=== PATIENT | female | born 1955 | race Caucasian/White ===

== ENCOUNTER → 2019-08-06 | Outpatient (CLI) | payer OTHER ==
--- NOTE | 2019-08-06 17:03 | XRAY Report ---
PROCEDURE: Sacrum/Coccyx INDICATIONS: COCCYGEAL PAIN TECHNIQUE: 3 views of the sacrum and coccyx acquired. COMPARISON: None FINDINGS: Bones: No fractures or dislocations. No suspicious bony lesions. Degenerative changes are present within the lower lumbar spine. Severe foraminal narrowing is noted L5-S1. Presume spinal stimulator i s noted. Soft tissues: Visualized bowel gas pattern is normal. No suspicious soft tissue densities. IMPRESSION: Degenerative changes as above. No visualized acute fracture. Reviewed by: Rafaela Polanco MD on 08/06/2019 5:01 PM PDT Approved by: Rafaela Polanco MD on 08/06/2019 5:01 PM PDT Station ID: [id number]
== END ==
LOC: DI.S 17:00
PROVIDERS: ATTEND Physician Assistant Medical
DX: M47.816 Spondylosis without myelopathy or radiculopathy, lumbar region (principal); M48.07 Spinal stenosis, lumbosacral region
CPT/HCPCS: 72220

== ENCOUNTER 2019-10-09 13:40 | Outpatient (CLI) | payer SELFPAY | END 2019-10-09 13:41 | disposition home or self-care (01) | LOC: COV 13:40 | PROVIDERS: ATTEND Family Medicine | DX: R05 Cough (principal); R53.83 Other fatigue; J34.89 Other specified disorders of nose and nasal sinuses; Z20.828 Contact with and (suspected) exposure to other viral communicable diseases ==

== ENCOUNTER 2023-04-12 08:48 | Inpatient (IN) | payer MEDICARE ==
--- NOTE | 2023-04-12 09:18 | ED Physician Documentation ---
History of Present Illness - Stated complaint Stated Complaint: RT LEG NUMB/TINGLING - Chief complaint Chief Complaint: Neuro - Additonal information Additional information: Patient 67-year-old female presenting to the emergency department with chief complaint of Right foot numbness and weakness as well as left-sided rib pain. 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 Reports 1 week history of left-sided rib pain that occurred after falling while burying a grave for the family dog. No head trauma, loss of consciousness, use of blood thinning medications. Has been taking her chronic pain medication at home. Yesterday, more than 24 hours ago experienced numbness to the right foot, right side greater than left side as well as weakness and difficulties with ambulation. Denies any other focal or lateralizing deficits. Denies any history of trauma to the foot. 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 HEENT: Tonsil/Adenoidectomy - Present Medications Home Medications: Ambulatory Orders Medication Instructions Recorded Confirmed Gabapentin [Gabapentin ER] 600 mg PO DAILY 04/12/23 04/12/23 Losartan Potassium 100 mg PO DAILY 04/12/23 04/12/23 - Allergies Allergies/Adverse Reactions: Allergies Allergy/AdvReac Type Severity Reaction Status Date / Time No Known Drug Allergies Allergy Verified 04/12/23 09:05 - Social History Does the pt smoke?: No Smoking Status: Never smoker Does the pt drink ETOH?: No Does the pt have substance abuse?: No - Immunizations Immunizations are current?: Yes - POLST Patient has POLST: No PD ED PE NORMAL - General General: Alert and oriented X 3, No acute distress, Well developed/nourished - HEENT HEENT: Atraumatic, PERRL, EOMI, Ears normal, Moist mucous membranes, Pharynx benign, Dentition benign - Neck Neck: Supple, no meningeal sign, No bony TTP, No JVD, No bruit - Cardiac Cardiac: RRR - Respiratory Respiratory: No respiratory distress - Abdomen Abdomen: Normal bowel sounds, Non tender - Female Female : Deferred - Rectal Rectal: Deferred - Neuro Neuro: Alert and oriented X 3, 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 Relevant findings are: Sinus rhythm with rate 66 bpm. Normal axis. Normal GA, QRS, QTc intervals. No ST segment elevations or T wave inversions. - Labs Labs: Laboratory Tests 04/12/23 04/12/23 09:34 09:34 WBC 11.6 H RBC 4.58 Hgb 14.3 Hct 44.2 MCV 96.5 MCH 31.2 H MCHC 32.4 RDW 13.6 Plt Count 189 MPV 10.9 H Neut # (Auto) 8.8 H Lymph # (Auto) 1.8 [place] # (Auto) 0.9 Eos # (Auto) 0.1 Baso # (Auto) 0.1 Absolute Nucleated RBC 0.00 Nucleated RBC % 0.0 Sodium 141 Potassium 3.6 Chloride 105 Carbon Dioxide 31 Anion Gap 5.0 L BUN 10 Creatinine 0.5 L Estimated GFR (MDRD) 124 Glucose 88 Calcium 9.6 Total Bilirubin 0.5 AST 15 ALT 14 Alkaline Phosphatase 73 Total Protein 5.9 L Albumin 3.7 Globulin 2.2 Albumin/Globulin Ratio 1.7 Lipase 18 PD Medical Decision Making - ED course Complexity details: reviewed results, d/w patient ED course: Patient 67-year-old female presenting to the emergency department with numbness weakness of the right foot. This has been ongoing for greater than 24 hours at time of arrival. She is not a candidate for urgent or emergent thrombolytic therapy. Her presentation is significant for an NIHSS score of 2 for some numbness as well as weakness with dorsiflexion of the associated foot. Initial differential diagnosis included but not limited to CVA, peripheral neuropathy, musculoskeletal injury. No pain associated with her symptoms and no reported injury. Basic labs within normal limits. Patient notably hypertensive on arrival however this normalized without pharmacologic intervention. Given her presentation I did obtain a MRI which showed an acute infarct in the anterior ventricular kirkpatrick matter. She was given aspirin and Plavix. Her EKG was obtained which was nonacute. Her care was discussed with the hospitalist service who graciously agreed to hospitalize for further evaluation and treatment. Departure - Departure Disposition: 68 [facility] DC/Xfer Clinical Impression: Cerebrovascular accident (CVA) Qualifiers: CVA mechanism: unspecified Qualified Code(s): I63.9 - Cerebral infarction, unspecified Forms: PCP List
[2023-04-12 09:45] LABS: BASOPHILS # (AUTO) 0.1 10^3/uL (0.0-0.1); BASOPHILS % (AUTO) 0.4 %; EOSINOPHILS # (AUTO) 0.1 10^3/uL (0.0-0.7); EOSINOPHILS % (AUTO) 0.7 %; HCT - HEMATOCRIT 44.2 % (37.0-47.0); HGB - HEMOGLOBIN 14.3 g/dL (12.0-16.0); LYMPHOCYTES # (AUTO) 1.8 10^3/uL (1.5-3.5); LYMPHOCYTES % (AUTO) 15.2 %; MEAN CORPUSCULAR HEMOGLOBIN 31.2 pg (27.0-31.0); MEAN CORPUSCULAR HGB CONC 32.4 g/dL (32.0-36.0); MEAN CORPUSCULAR VOLUME 96.5 fL (81.0-99.0); MEAN PLATELET VOLUME 10.9 fL (7.9-10.8); MONOCYTES # (AUTO) 0.9 10^3/uL (0.0-1.0); MONOCYTES % (AUTO) 7.4 %; NEUTROPHILS # (AUTO) 8.8 10^3/uL (1.5-6.6); NEUTROPHILS % (AUTO) 75.9 %; PLT - PLATELET COUNT 189 10^3/uL (130-450); RED BLOOD COUNT 4.58 10^6/uL (4.20-5.40); RED CELL DISTRIBUTION WIDTH 13.6 % (12.0-15.0); WHITE BLOOD COUNT 11.6 x10^3/uL (4.8-10.8)
[2023-04-12 09:57] LABS: ALBUMIN 3.7 g/dL (3.2-5.5); ALBUMIN/GLOBULIN RATIO 1.7 (1.0-2.2); BILIRUBIN,TOTAL 0.5 mg/dL (0.2-1.0); CALCIUM 9.6 mg/dL (8.5-10.3); CREATININE 0.5 mg/dL (0.6-1.3); POTASSIUM 3.6 mmol/L (3.5-4.5); TOTAL PROTEIN 5.9 g/dL (6.4-8.9)
--- NOTE | 2023-04-12 11:15 | XRAY Report ---
PROCEDURE: Ribs w/PA Chest 3+V LT INDICATIONS: Rib pain/trauma TECHNIQUE: 2 views of the ribs were acquired, along with a single view chest. COMPARISON: None. FINDINGS: Bones and chest wall: No fractures or dislocations. No suspicious bony lesions. Overlying soft tis sues appear unremarkable. Lungs and pleura: No pleural effusions or pneumothorax. Lungs appear clear. Mediastinum: Mediastinal contours appear normal. Heart size is normal. IMPRESSION: No displaced rib fracture or pneumothorax. Reviewed by: Andrews Bowman MD on 04/12/2023 11:14 AM PST Approved by: Andrews Bowman MD on 04/12/2023 11:14 AM PST Station ID: [id number]
[2023-04-12] MEDS ORDERED: GADOTERATE MEGLUMINE 5 MMOL/10 ML VIAL ONE (11:30)
--- NOTE | 2023-04-12 13:40 | MRI Report ---
PROCEDURE: Brain W/WO INDICATIONS: rt foot/leg weaknes CONTRAST: 7.8ml Clariscan TECHNIQUE: Noncontrast axial T1 spin echo, axial T2 fast spin echo, sagittal and axial FLAIR, coronal T2 fast sp in echo, axial gradient echo, axial diffusion and ADC through the brain. After the administration of contrast, axial and coronal T1 spin echo with fat saturation through the brain. COMPARISON: None. FINDINGS: Image quality: Excellent. CSF spaces: Basal cisterns are patent. No extra-axial fluid collections. Ventricles are normal in size and shape. Brain: Small area of restricted diffusion within the left periventricular white matter measuring janki roximately 1.3 x 0.7 cm, consistent with acute infarct. No midline shift. No intracranial bleeds or masses. No abnormal intracranial enhancement. There is cerebral volume loss for age. There is hans ventricular white matter chronic small vessel ischemic change. The brainstem appears normal. No chr onic ischemic insults. Vertebrobasilar dolichoectasia. Otherwise, normal intravascular flow voids are present. Scattered foci of susceptibility artifact, likely sequela of prior chronic hypertensive keith rohemorrhages. Skull and face: Calvarial marrow is normal in signal. Bilateral lens replacements. The orbits are o therwise normal in appearance. Sinuses: Mild maxillary sinus mucosal thickening. Trace bilateral mastoid effusions. IMPRESSION: 1.Small acute infarct within the left periventricular white matter. 2.Age-related global volume loss and chronic microvascular ischemic changes. Reviewed by: Stephon Celis MD on 04/12/2023 1:39 PM PST Approved by: Stephon Celis MD on 04/12/2023 1:39 PM PST Station ID: [id number]
[2023-04-12] MEDS: ASPIRIN 325 MG TABLET PO STA (14:14)
[2023-04-12] MEDS: CLOPIDOGREL 300 MG TABLET PO STA (14:14)
[2023-04-12] MEDS: CALCIUM CARBONATE CHEW 500 MG TABLET PO STA (15:10)
[2023-04-12] MEDS ORDERED: SODIUM CHLORIDE FLUSH 0.9% 10 ML SYRINGE IVP PRN (15:44)
[2023-04-12] MEDS ORDERED: ONDANSETRON ODT 4 MG TABLET TL PRN (15:44)
[2023-04-12] MEDS: GADOTERATE MEGLUMINE 5 MMOL/10 ML VIAL IVP ONE (16:20)
[2023-04-12] MEDS: SODIUM CHLORIDE FLUSH 0.9% 10 ML SYRINGE IVP SCH (17:04)
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
[2023-04-12] MEDS: LABETALOL 20 MG/4 ML SYRINGE IVP PRN (18:06)
[2023-04-12] MEDS: ATORVASTATIN 40 MG TABLET PO SCH (20:47)
[2023-04-12] MEDS: GABAPENTIN 300 MG CAPSULE PO SCH (20:47)
[2023-04-13] MEDS: ACETAMINOPHEN 325 MG TABLET PO PRN (05:00)
[2023-04-13 06:02] LABS: BASOPHILS % (AUTO) 0.4 %; EOSINOPHILS # (AUTO) 0.2 10^3/uL (0.0-0.7); EOSINOPHILS % (AUTO) 1.6 %; HCT - HEMATOCRIT 41.7 % (37.0-47.0); HGB - HEMOGLOBIN 13.8 g/dL (12.0-16.0); LYMPHOCYTES % (AUTO) 20.8 %; MEAN CORPUSCULAR HEMOGLOBIN 31.6 pg (27.0-31.0); MEAN CORPUSCULAR HGB CONC 33.1 g/dL (32.0-36.0); MEAN CORPUSCULAR VOLUME 95.4 fL (81.0-99.0); MEAN PLATELET VOLUME 10.8 fL (7.9-10.8); MONOCYTES # (AUTO) 0.6 10^3/uL (0.0-1.0); MONOCYTES % (AUTO) 6.8 %; NEUTROPHILS # (AUTO) 6.6 10^3/uL (1.5-6.6); NEUTROPHILS % (AUTO) 70.2 %; PLT - PLATELET COUNT 176 10^3/uL (130-450); RED BLOOD COUNT 4.37 10^6/uL (4.20-5.40); RED CELL DISTRIBUTION WIDTH 13.4 % (12.0-15.0); WHITE BLOOD COUNT 9.4 x10^3/uL (4.8-10.8)
[2023-04-13 06:18] LABS: ALBUMIN 3.4 g/dL (3.2-5.5); ALBUMIN/GLOBULIN RATIO 1.6 (1.0-2.2); ALKALINE PHOSPHATASE 68 IU/L (42-121); ALT ALANINE AMINOTRANSFERASE 12 IU/L (10-60); AST ASPARTATE AMINOTRANSFERASE 13 IU/L (10-42); BILIRUBIN,TOTAL 0.6 mg/dL (0.2-1.0); BUN - BLOOD UREA NITROGEN 10 mg/dL (6-20); CALCIUM 9.2 mg/dL (8.5-10.3); CARBON DIOXIDE - CO2 29 mmol/L (21-32); CHLORIDE 107 mmol/L (101-111); CHOL/HDL RATIO 2.4 (<4.4); CHOLESTEROL 214 mg/dL; CREATININE 0.5 mg/dL (0.6-1.3); GFR - MDRD 124 (>89); GLUCOSE 92 mg/dL (74-104); HDL CHOLESTEROL 88 mg/dL; LDL CHOLESTEROL,CALCULATED 103 mg/dL; LDL/HDL RATIO 1.2 (<4.4); POTASSIUM 3.6 mmol/L (3.5-4.5); SODIUM 141 mmol/L (135-145); TOTAL PROTEIN 5.5 g/dL (6.4-8.9); TRIGLYCERIDES 117 mg/dL (48-352); VLDL CHOLESTEROL 23 mg/dL
[2023-04-13] MEDS: ENOXAPARIN 40 MG/0.4 ML SYRINGE SUBQ SCH (08:10)
[2023-04-13] MEDS: CLOPIDOGREL 75 MG TABLET PO SCH (08:10)
[2023-04-13] MEDS: ASPIRIN EC 81 MG TABLET PO SCH (08:10)
--- NOTE | 2023-04-13 08:30 | PROVIDER PROGRESS NOTE ---
Assessment/Plan - Problem List (1) Cerebrovascular accident (CVA) Qualifiers: CVA mechanism: unspecified Qualified Code(s): I63.9 - Cerebral infarction, unspecified Assessment/Plan: Stable No new FND LDL 103 -PT/OT -will resume Bp meds pm -continue with ASA and plavix -continue with lipitor, to be followed by PCP with goal LDL <70 (2) HTN (hypertension) Assessment/Plan: Permissive hypertension now will resume Bp meds in pm - Current Meds Current Meds: Current Medications Generic Name Dose Route Start Last Admin Trade Name Freq PRN Reason Stop Dose Admin Acetaminophen 650 mg 04/12/23 15:44 04/13/23 05:00 Acetaminophen 325 Mg Tablet PO 650 mg Q4HR PRN Administration Pain 1 to 4, or Fever Aspirin 81 mg 04/13/23 09:00 04/13/23 08:10 Aspirin Ec 81 Mg Tablet PO 81 mg DAILY LASHA Administration Atorvastatin Calcium 40 mg 04/12/23 21:00 04/12/23 20:47 Atorvastatin 40 Mg Tablet PO 40 mg QPM LASHA Administration Clopidogrel Bisulfate 75 mg 04/13/23 09:00 04/13/23 08:10 Clopidogrel 75 Mg Tablet PO 75 mg DAILY LASHA Administration Enoxaparin Sodium 40 mg 04/13/23 09:00 04/13/23 08:10 Enoxaparin 40 Mg/0.4 Ml Syringe SUBQ 40 mg DAILY LASHA Administration Gabapentin 600 mg 04/12/23 21:00 04/12/23 20:47 Gabapentin 300 Mg Capsule PO 600 mg QPM LASHA Administration Labetalol HCl 20 mg 04/12/23 17:23 04/12/23 18:06 Labetalol 20 Mg/4 Ml Syringe IVP 04/13/23 17:22 20 mg ONCE PRN Administration If SBP>200 Sodium Chloride 10 ml 04/12/23 17:00 04/13/23 08:11 Sodium Chloride Flush 0.9% 10 Ml Syringe IVP 10 ml 0100,0900,1700 LASHA Administration - Lab Result Fish Bone Diagrams: 04/13/23 05:53 04/13/23 05:53 - Additional Planning Condition/Complexity: Stable My Orders: My Active Orders 04/12/23 15:44 Telemetry (24 Hour) [RC] Q4HR Acetaminophen [Tylenol] 650 mg PO Q4HR PRN Ondansetron Odt [Zofran Odt] 4 mg TL Q6HR PRN Sodium Chloride Flush 0.9% [Normal Saline Flush 0.9%] 10 ml IVP PRN PRN 04/12/23 15:45 Activity Orders [RC] Q2HR IO [RC] IOSHIFT Incentive Spirometry - RT [RC] TID Initiate Bowel Care Protocol [RC] .protocol Initiate Line Care Protocol [RC] QSHIFT Initiate Personal Care Protoco [RC] .protocol Oxygen Therapy [RC] .PRN Vital Signs [RC] Q4HR Code Status [OTHERS] Routine Condition of Patient [OTHERS] Routine DVT Prophylaxis [OTHERS] Routine 04/12/23 15:47 Evaluate and Treat OT [OT] Routine Evaluate and Treat PT [PT] Routine 04/12/23 15:49 Echo Complete w/Bubble Study [ECHO] Stat 04/12/23 Dinner Regular Diet [DIET] 04/12/23 17:00 Sodium Chloride Flush 0.9% [Normal Saline Flush 0.9%] 10 ml IVP 0100,0900,1700 04/12/23 17:23 Labetalol Syringe [Trandate Syringe] 20 mg IVP ONCE PRN 04/12/23 21:00 Atorvastatin [Lipitor] 40 mg PO QPM Gabapentin [Neurontin] 600 mg PO QPM 04/13/23 05:53 HEMOGLOBIN A1c% [CHEM] DAILYLAB 04/13/23 09:00 Aspirin EC [Ecotrin] 81 mg PO DAILY Clopidogrel [Plavix] 75 mg PO DAILY Enoxaparin [Lovenox] 40 mg SUBQ DAILY 04/14/23 05:00 CBC [CBC - COMP BLD CT W/AUTO DIFF] [HEME] DAILYLAB 04/15/23 05:00 CBC [CBC - COMP BLD CT W/AUTO DIFF] [HEME] DAILYLAB 04/16/23 05:00 CBC [CBC - COMP BLD CT W/AUTO DIFF] [HEME] DAILYLAB 04/17/23 05:00 CBC [CBC - COMP BLD CT W/AUTO DIFF] [HEME] DAILYLAB Plan Discussed with:: Patient Time Spent: 15-30 minutes Additional Planning Notes: If continues stable, plan to discharge patient home tomorrow Objective Vital Signs: Vital Signs - 24 hr 04/12/23 04/12/23 04/12/23 09:00 11:19 14:00 Temperature 36.4 C L Heart Rate 83 70 73 Heart Rate [ Brachial] Respiratory 20 18 20 Rate Blood Pressure 204/142 H 182/125 H 182/96 H Blood Pressure [Left Brachial artery] O2 Saturation 99 98 99 04/12/23 04/12/23 04/12/23 16:00 16:43 18:06 Temperature 36.1 C L 36.7 C Heart Rate 74 Heart Rate [ 67 74 Brachial] Respiratory 18 18 Rate Blood Pressure 175/114 H Blood Pressure 191/135 H 214/125 H [Left Brachial artery] O2 Saturation 97 97 04/12/23 04/12/23 04/12/23 18:11 18:16 18:21 Temperature Heart Rate Heart Rate [ 75 60 60 Brachial] Respiratory Rate Blood Pressure Blood Pressure 185/117 H 153/85 H 147/88 H [Left Brachial artery] O2 Saturation 04/12/23 04/12/23 04/12/23 18:36 18:51 19:06 Temperature Heart Rate Heart Rate [ 64 65 62 Brachial] Respiratory Rate Blood Pressure Blood Pressure 162/100 H 153/99 H 142/91 H [Left Brachial artery] O2 Saturation 04/12/23 04/12/23 04/13/23 20:03 23:59 04:57 Temperature 36.8 C 36.8 C 37.1 C Heart Rate Heart Rate [ 63 64 71 Brachial] Respiratory 20 20 20 Rate Blood Pressure Blood Pressure 166/93 H 165/99 H 184/113 H [Left Brachial artery] O2 Saturation 99 95 95 04/13/23 07:37 Temperature 37.1 C Heart Rate Heart Rate [ 73 Brachial] Respiratory 16 Rate Blood Pressure Blood Pressure 189/120 H [Left Brachial artery] O2 Saturation 94 Oxygen O2 Source Room air I&O (Last 24 Hrs): Intake and Output Totals x24h 04/11/23 04/12/23 04/13/23 23:59 23:59 23:59 Intake Total 270 Balance 270 - Results Results: Laboratory Results WBC 9.4 x10^3/uL (4.8-10.8) 04/13/23 05:53 RBC 4.37 10^6/uL (4.20-5.40) 04/13/23 05:53 Hgb 13.8 g/dL (12.0-16.0) 04/13/23 05:53 Hct 41.7 % (37.0-47.0) 04/13/23 05:53 MCV 95.4 fL (81.0-99.0) 04/13/23 05:53 MCH 31.6 pg (27.0-31.0) H 04/13/23 05:53 MCHC 33.1 g/dL (32.0-36.0) 04/13/23 05:53 RDW 13.4 % (12.0-15.0) 04/13/23 05:53 Plt Count 176 10^3/uL (130-450) 04/13/23 05:53 MPV 10.8 fL (7.9-10.8) 04/13/23 05:53 Neut # (Auto) 6.6 10^3/uL (1.5-6.6) 04/13/23 05:53 Lymph # (Auto) 2.0 10^3/uL (1.5-3.5) 04/13/23 05:53 [place] # (Auto) 0.6 10^3/uL (0.0-1.0) 04/13/23 05:53 Eos # (Auto) 0.2 10^3/uL (0.0-0.7) 04/13/23 05:53 Baso # (Auto) 0.0 10^3/uL (0.0-0.1) 04/13/23 05:53 Absolute Nucleated RBC 0.00 x10^3/uL 04/13/23 05:53 Nucleated RBC % 0.0 /100WBC 04/13/23 05:53 Sodium 141 mmol/L (135-145) 04/13/23 05:53 Potassium 3.6 mmol/L (3.5-4.5) 04/13/23 05:53 Chloride 107 mmol/L (101-111) 04/13/23 05:53 Carbon Dioxide 29 mmol/L (21-32) 04/13/23 05:53 Anion Gap 5.0 (6-13) L 04/13/23 05:53 BUN 10 mg/dL (6-20) 04/13/23 05:53 Creatinine 0.5 mg/dL (0.6-1.3) L 04/13/23 05:53 Estimated GFR (MDRD) 124 (>89) 04/13/23 05:53 Glucose 92 mg/dL (74-104) 04/13/23 05:53 Calcium 9.2 mg/dL (8.5-10.3) 04/13/23 05:53 Total Bilirubin 0.6 mg/dL (0.2-1.0) 04/13/23 05:53 AST 13 IU/L (10-42) 04/13/23 05:53 ALT 12 IU/L (10-60) 04/13/23 05:53 Alkaline Phosphatase 68 IU/L (42-121) 04/13/23 05:53 Total Protein 5.5 g/dL (6.4-8.9) L 04/13/23 05:53 Albumin 3.4 g/dL (3.2-5.5) 04/13/23 05:53 Globulin 2.1 g/dL (2.1-4.2) 04/13/23 05:53 Albumin/Globulin Ratio 1.6 (1.0-2.2) 04/13/23 05:53 Triglycerides 117 mg/dL (48-352) 04/13/23 05:53 Cholesterol 214 mg/dL (-200) H 04/13/23 05:53 LDL Cholesterol, Calc 103 mg/dL (-129) 04/13/23 05:53 VLDL Cholesterol 23 mg/dL 04/13/23 05:53 HDL Cholesterol 88 mg/dL (60-) 04/13/23 05:53 LDL/HDL Ratio 1.2 (<4.4) 04/13/23 05:53 Cholesterol/HDL Ratio 2.4 (<4.4) 04/13/23 05:53 Lipase 18 U/L (11-82) 04/12/23 09:34 - Procedures Procedures: Procedures COLONOSCOPY (09/19/13) Sepsis Event Note (H) - Evaluation Current Stage of Sepsis: Ruled out ABX Reporting Has patient been on IV antibiotics over the past 48 hours?: No
[2023-04-13 09:26] LABS: ESTIMATED AVERAGE GLUCOSE 114 mg/dL (70-100); HEMOGLOBIN A1c% 5.6 % (4.27-6.07)
--- NOTE | 2023-04-13 09:39 | PHARMACY PROGRESS NOTE ---
- Best Possible Medication History Admit Date and Time: 04/12/23 1545 Processed by: Nursing Medications reviewed in ED?: Yes Medication History completed: Yes Patient Interview: Completed Secondary Source(s): Insurance records As the person ultimately responsible for medication therapy, providers are able to order a medication from an existing home medication list in [facility] via the "Reconcile Routine" prior to Confirmation of that medication by community support associate. Such practice is discouraged except when the physician, in their clinical judgment, deems that a medical need exists for a medication without regard to previous use.
[2023-04-13] MEDS: LOSARTAN 50 MG TABLET PO SCH (18:08)
[2023-04-14] MEDS: amLODIPine 5 MG TABLET PO SCH (08:17)
[2023-04-14] MEDS: GABAPENTIN 300 MG CAPSULE PO SCH (08:45)
[2023-04-14 10:01] LABS: BASOPHILS % (AUTO) 0.3 %; EOSINOPHILS # (AUTO) 0.1 10^3/uL (0.0-0.7); EOSINOPHILS % (AUTO) 1.2 %; HCT - HEMATOCRIT 43.5 % (37.0-47.0); HGB - HEMOGLOBIN 14.3 g/dL (12.0-16.0); LYMPHOCYTES # (AUTO) 1.6 10^3/uL (1.5-3.5); LYMPHOCYTES % (AUTO) 16.7 %; MEAN CORPUSCULAR HEMOGLOBIN 31.7 pg (27.0-31.0); MEAN CORPUSCULAR HGB CONC 32.9 g/dL (32.0-36.0); MEAN CORPUSCULAR VOLUME 96.5 fL (81.0-99.0); MEAN PLATELET VOLUME 11.4 fL (7.9-10.8); MONOCYTES # (AUTO) 0.7 10^3/uL (0.0-1.0); MONOCYTES % (AUTO) 7.4 %; NEUTROPHILS # (AUTO) 7.3 10^3/uL (1.5-6.6); NEUTROPHILS % (AUTO) 74.1 %; PLT - PLATELET COUNT 190 10^3/uL (130-450); RED BLOOD COUNT 4.51 10^6/uL (4.20-5.40); RED CELL DISTRIBUTION WIDTH 13.5 % (12.0-15.0); WHITE BLOOD COUNT 9.8 x10^3/uL (4.8-10.8)
--- NOTE | 2023-04-14 11:39 | PROVIDER PROGRESS NOTE ---
Assessment/Plan - Problem List (1) Cerebrovascular accident (CVA) Qualifiers: CVA mechanism: unspecified Qualified Code(s): I63.9 - Cerebral infarction, unspecified Assessment/Plan: Worsened Right leg more weakness, has to drag to move PT/OT recommends SNF for discharg MRI brain STAT for the new worsening neuro sign (2) HTN (hypertension) Assessment/Plan: Past permissive hypertension phase give amlodipin, along with home dose losartan Goal sBp 140-180 - Current Meds Current Meds: Current Medications Generic Name Dose Route Start Last Admin Trade Name Freq PRN Reason Stop Dose Admin Acetaminophen 650 mg 04/12/23 15:44 04/14/23 08:16 Acetaminophen 325 Mg Tablet PO 650 mg Q4HR PRN Administration Pain 1 to 4, or Fever Amlodipine Besylate 10 mg 04/14/23 09:00 04/14/23 08:17 Amlodipine 5 Mg Tablet PO 10 mg DAILY LASHA Administration Aspirin 81 mg 04/13/23 09:00 04/14/23 08:17 Aspirin Ec 81 Mg Tablet PO 81 mg DAILY LASHA Administration Atorvastatin Calcium 40 mg 04/12/23 21:00 04/13/23 20:28 Atorvastatin 40 Mg Tablet PO 40 mg QPM LASHA Administration Clopidogrel Bisulfate 75 mg 04/13/23 09:00 04/14/23 08:17 Clopidogrel 75 Mg Tablet PO 75 mg DAILY LASHA Administration Enoxaparin Sodium 40 mg 04/13/23 09:00 04/14/23 08:17 Enoxaparin 40 Mg/0.4 Ml Syringe SUBQ 40 mg DAILY LASHA Administration Gabapentin 600 mg 04/12/23 21:00 04/13/23 20:28 Gabapentin 300 Mg Capsule PO 600 mg QPM LASHA Administration Gabapentin 300 mg 04/14/23 09:00 04/14/23 08:45 Gabapentin 300 Mg Capsule PO 300 mg TID LASHA Administration Losartan Potassium 100 mg 04/13/23 18:00 04/14/23 08:17 Losartan 50 Mg Tablet PO 100 mg DAILY LASHA Administration Sodium Chloride 10 ml 04/12/23 17:00 04/14/23 08:17 Sodium Chloride Flush 0.9% 10 Ml Syringe IVP 10 ml 0100,0900,1700 LASHA Administration - Lab Result Lab results reviewed: Yes Fish Bone Diagrams: 04/14/23 06:30 04/13/23 05:53 - Additional Planning Condition/Complexity: Other (worsened) My Orders: My Active Orders 04/13/23 18:00 Losartan [Cozaar] 100 mg PO DAILY 04/14/23 Social Work Consult [CONS] Routine 04/14/23 09:00 Gabapentin [Neurontin] 300 mg PO TID amLODIPine [Norvasc] 10 mg PO DAILY 04/15/23 05:00 CBC [CBC - COMP BLD CT W/AUTO DIFF] [HEME] DAILYLAB 04/16/23 05:00 CBC [CBC - COMP BLD CT W/AUTO DIFF] [HEME] DAILYLAB 04/17/23 05:00 CBC [CBC - COMP BLD CT W/AUTO DIFF] [HEME] DAILYLAB Plan Discussed with:: Patient Time Spent: 31-60 minutes Additional Planning Notes: With worsening neurologic condition, not medically stable for discharge Anticipate 2-3 more days hospital stay Subjective - Subjective Patient Reports: Other (weaker on right foot) Objective Vital Signs: Vital Signs - 24 hr 04/13/23 04/13/23 04/13/23 12:59 14:33 14:50 Temperature 36.5 C Heart Rate [ 78 Brachial] Heart Rate [ 72 72 Sitting] Heart Rate [ 78 78 Standing] Heart Rate [ 79 79 Supine] Respiratory 17 Rate Blood Pressure 170/104 H [Left Brachial artery] Blood Pressure 207/126 H 207/126 H [Sitting] Blood Pressure 220/142 H 220/142 H [Standing] Blood Pressure 197/119 H 197/119 H [Supine] O2 Saturation 96 04/13/23 04/13/23 04/14/23 14:59 15:53 00:00 Temperature 36.7 C 36.9 C Heart Rate [ 80 72 82 Brachial] Heart Rate [ Sitting] Heart Rate [ Standing] Heart Rate [ Supine] Respiratory 16 20 Rate Blood Pressure 170/116 H 167/112 H 181/106 H [Left Brachial artery] Blood Pressure [Sitting] Blood Pressure [Standing] Blood Pressure [Supine] O2 Saturation 96 97 04/14/23 04/14/23 07:29 09:30 Temperature 36.8 C Heart Rate [ 81 Brachial] Heart Rate [ Sitting] Heart Rate [ Standing] Heart Rate [ Supine] Respiratory 14 Rate Blood Pressure 177/111 H 158/99 H [Left Brachial artery] Blood Pressure [Sitting] Blood Pressure [Standing] Blood Pressure [Supine] O2 Saturation 96 Oxygen O2 Source Room air I&O (Last 24 Hrs): Intake and Output Totals x24h 04/12/23 04/13/23 04/14/23 23:59 23:59 23:59 Intake Total 270 2220 100 Balance 270 2220 100 General: Alert, Oriented x3 HEENT: PERRLA, EOMI Neck: Supple, No JVD Neuro: Alert, CN 2-12 Grossly Intact, Other (right lower leg weakness more profund) Cardiovascular: Regular rate Respiratory: Chest non-tender Extremities: No edema - Results Results: Laboratory Results WBC 9.8 x10^3/uL (4.8-10.8) 04/14/23 06:30 RBC 4.51 10^6/uL (4.20-5.40) 04/14/23 06:30 Hgb 14.3 g/dL (12.0-16.0) 04/14/23 06:30 Hct 43.5 % (37.0-47.0) 04/14/23 06:30 MCV 96.5 fL (81.0-99.0) 04/14/23 06:30 MCH 31.7 pg (27.0-31.0) H 04/14/23 06:30 MCHC 32.9 g/dL (32.0-36.0) 04/14/23 06:30 RDW 13.5 % (12.0-15.0) 04/14/23 06:30 Plt Count 190 10^3/uL (130-450) 04/14/23 06:30 MPV 11.4 fL (7.9-10.8) H 04/14/23 06:30 Neut # (Auto) 7.3 10^3/uL (1.5-6.6) H 04/14/23 06:30 Lymph # (Auto) 1.6 10^3/uL (1.5-3.5) 04/14/23 06:30 [place] # (Auto) 0.7 10^3/uL (0.0-1.0) 04/14/23 06:30 Eos # (Auto) 0.1 10^3/uL (0.0-0.7) 04/14/23 06:30 Baso # (Auto) 0.0 10^3/uL (0.0-0.1) 04/14/23 06:30 Absolute Nucleated RBC 0.00 x10^3/uL 04/14/23 06:30 Nucleated RBC % 0.0 /100WBC 04/14/23 06:30 Sodium 141 mmol/L (135-145) 04/13/23 05:53 Potassium 3.6 mmol/L (3.5-4.5) 04/13/23 05:53 Chloride 107 mmol/L (101-111) 04/13/23 05:53 Carbon Dioxide 29 mmol/L (21-32) 04/13/23 05:53 Anion Gap 5.0 (6-13) L 04/13/23 05:53 BUN 10 mg/dL (6-20) 04/13/23 05:53 Creatinine 0.5 mg/dL (0.6-1.3) L 04/13/23 05:53 Estimated GFR (MDRD) 124 (>89) 04/13/23 05:53 Glucose 92 mg/dL (74-104) 04/13/23 05:53 Estimat Average Glucose 114 mg/dL (70-100) H 04/13/23 05:53 Hemoglobin A1c % 5.6 % (4.27-6.07) 04/13/23 05:53 Calcium 9.2 mg/dL (8.5-10.3) 04/13/23 05:53 Total Bilirubin 0.6 mg/dL (0.2-1.0) 04/13/23 05:53 AST 13 IU/L (10-42) 04/13/23 05:53 ALT 12 IU/L (10-60) 04/13/23 05:53 Alkaline Phosphatase 68 IU/L (42-121) 04/13/23 05:53 Total Protein 5.5 g/dL (6.4-8.9) L 04/13/23 05:53 Albumin 3.4 g/dL (3.2-5.5) 04/13/23 05:53 Globulin 2.1 g/dL (2.1-4.2) 04/13/23 05:53 Albumin/Globulin Ratio 1.6 (1.0-2.2) 04/13/23 05:53 Triglycerides 117 mg/dL (48-352) 04/13/23 05:53 Cholesterol 214 mg/dL (-200) H 04/13/23 05:53 LDL Cholesterol, Calc 103 mg/dL (-129) 04/13/23 05:53 VLDL Cholesterol 23 mg/dL 04/13/23 05:53 HDL Cholesterol 88 mg/dL (60-) 04/13/23 05:53 LDL/HDL Ratio 1.2 (<4.4) 04/13/23 05:53 Cholesterol/HDL Ratio 2.4 (<4.4) 04/13/23 05:53 Lipase 18 U/L (11-82) 04/12/23 09:34 - Procedures Procedures: Procedures COLONOSCOPY (09/19/13) Sepsis Event Note (H) - Evaluation Current Stage of Sepsis: Ruled out ABX Reporting Has patient been on IV antibiotics over the past 48 hours?: No
--- NOTE | 2023-04-15 01:20 | MRI Report ---
PROCEDURE: Brain WO INDICATIONS: CVA, worsened right leg weakness TECHNIQUE: Noncontrast axial T1 spin echo, axial T2 fast spin echo, sagittal and axial FLAIR, coronal T2 fast sp in echo, axial gradient echo, axial diffusion and ADC through the brain. COMPARISON: MRI of the brain dated 04/12/2023. FINDINGS: Image quality: Excellent. CSF Spaces: Basal cisterns are patent. No extra-axial fluid collections. Ventricles are normal in size and shape. Brain: No intracranial masses or hemorrhage. Bourgeois/white matter interface is normal. Brainstem appe ars normal. Diffusion-weighted images again shows restricted diffusion involving left periventricula r white matter not significantly changed from previous study. No new area of abnormal restricted diff usion is seen. No chronic ischemic insults. Normal intravascular flow voids are present. Skull and face: Calvarium has normal marrow signal. Orbits appear normal. Sinuses: Sinuses and mastoids are clear. IMPRESSION: 1. Stable appearing acute to subacute infarction in left periventricular white matter not significant ly changed from previous study. 2. No new area of acute infarction. No intracranial bleed or midline shift. Reviewed by: Avtar Rico MD on 04/15/2023 1:19 AM PST Approved by: Avtar Rico MD on 04/15/2023 1:19 AM PST Station ID: [id number]
[2023-04-15 05:25] LABS: BASOPHILS % (AUTO) 0.5 %; EOSINOPHILS # (AUTO) 0.2 10^3/uL (0.0-0.7); EOSINOPHILS % (AUTO) 1.7 %; HCT - HEMATOCRIT 42.2 % (37.0-47.0); HGB - HEMOGLOBIN 13.9 g/dL (12.0-16.0); LYMPHOCYTES % (AUTO) 23.2 %; MEAN CORPUSCULAR HEMOGLOBIN 31.5 pg (27.0-31.0); MEAN CORPUSCULAR HGB CONC 32.9 g/dL (32.0-36.0); MEAN CORPUSCULAR VOLUME 95.7 fL (81.0-99.0); MONOCYTES # (AUTO) 0.7 10^3/uL (0.0-1.0); MONOCYTES % (AUTO) 7.8 %; NEUTROPHILS # (AUTO) 5.9 10^3/uL (1.5-6.6); NEUTROPHILS % (AUTO) 66.6 %; PLT - PLATELET COUNT 184 10^3/uL (130-450); RED BLOOD COUNT 4.41 10^6/uL (4.20-5.40); RED CELL DISTRIBUTION WIDTH 13.4 % (12.0-15.0); WHITE BLOOD COUNT 8.8 x10^3/uL (4.8-10.8)
[2023-04-15] MEDS: hydroCHLOROthiazide 12.5 MG CAPSULE PO SCH (08:11)
--- NOTE | 2023-04-15 09:01 | PROVIDER PROGRESS NOTE ---
Assessment/Plan - Problem List (1) Cerebrovascular accident (CVA) Qualifiers: CVA mechanism: unspecified Qualified Code(s): I63.9 - Cerebral infarction, unspecified Assessment/Plan: worsen Right leg paralysed, Numbness Patient also reports some numbness on her right face Consulted with [facility] neurologist Dr. Ubaldo [place] recommended CTA head and neck Recommend longer permissive hypertension. For 5 days Recommend IV fluid to see if it can help with better perfusion of the ischemic area (2) HTN (hypertension) Assessment/Plan: RemainPermissive hypertension Treat blood pressure only when systolic blood pressure over 200 - Current Meds Current Meds: Current Medications Generic Name Dose Route Start Last Admin Trade Name Freq PRN Reason Stop Dose Admin Acetaminophen 650 mg 04/12/23 15:44 04/14/23 08:16 Acetaminophen 325 Mg Tablet PO 650 mg Q4HR PRN Administration Pain 1 to 4, or Fever Amlodipine Besylate 10 mg 04/14/23 09:00 04/15/23 08:11 Amlodipine 5 Mg Tablet PO 10 mg DAILY LASHA Administration Aspirin 81 mg 04/13/23 09:00 04/15/23 08:11 Aspirin Ec 81 Mg Tablet PO 81 mg DAILY LASHA Administration Atorvastatin Calcium 40 mg 04/12/23 21:00 04/14/23 21:03 Atorvastatin 40 Mg Tablet PO 40 mg QPM LASHA Administration Clopidogrel Bisulfate 75 mg 04/13/23 09:00 04/15/23 08:11 Clopidogrel 75 Mg Tablet PO 75 mg DAILY LASHA Administration Enoxaparin Sodium 40 mg 04/13/23 09:00 04/15/23 08:11 Enoxaparin 40 Mg/0.4 Ml Syringe SUBQ 40 mg DAILY LASHA Administration Gabapentin 600 mg 04/12/23 21:00 04/14/23 21:03 Gabapentin 300 Mg Capsule PO 600 mg QPM LASHA Administration Gabapentin 300 mg 04/14/23 09:00 04/15/23 05:01 Gabapentin 300 Mg Capsule PO 300 mg TID LASHA Administration Hydrochlorothiazide 12.5 mg 04/15/23 09:00 04/15/23 08:11 Hydrochlorothiazide 12.5 Mg Capsule PO 12.5 mg DAILY LASHA Administration Losartan Potassium 100 mg 04/13/23 18:00 04/15/23 08:11 Losartan 50 Mg Tablet PO 100 mg DAILY LASHA Administration Sodium Chloride 10 ml 04/12/23 17:00 04/15/23 08:12 Sodium Chloride Flush 0.9% 10 Ml Syringe IVP 10 ml 0100,0900,1700 LASHA Administration - Lab Result Lab results reviewed: Yes Fish Bone Diagrams: 04/15/23 04:55 04/13/23 05:53 - Additional Planning Condition/Complexity: Unstable My Orders: My Active Orders 04/14/23 09:00 Gabapentin [Neurontin] 300 mg PO TID amLODIPine [Norvasc] 10 mg PO DAILY 04/14/23 13:45 RN MRI Screening [RC] .ONCE 04/14/23 Dinner DIET [Low Sodium Diet] [DIET] 04/15/23 09:00 hydroCHLOROthiazide [Hydrodiuril] 12.5 mg PO DAILY 04/16/23 05:00 CBC [CBC - COMP BLD CT W/AUTO DIFF] [HEME] DAILYLAB 04/17/23 05:00 CBC [CBC - COMP BLD CT W/AUTO DIFF] [HEME] DAILYLAB Consult/Specialty: Neurology ([facility] on-call Dr. Ubaldo Vegas) Plan Discussed with:: Patient, Family, Other (Daughter and son are at bedside) Time Spent: Greater than 60 minutes Subjective - Subjective Patient Reports: Other (Right leg weakness worsened, numbness showed up on her right side face) Objective Vital Signs: Vital Signs - 24 hr 04/14/23 04/14/23 04/14/23 09:30 14:53 23:47 Temperature 37 C 36.7 C Heart Rate [ 82 77 Brachial] Respiratory 16 16 Rate Blood Pressure 158/99 H 132/100 H 162/96 H [Left Brachial artery] O2 Saturation 97 97 04/15/23 04/15/23 05:28 07:44 Temperature 36.6 C 37 C Heart Rate [ 74 76 Brachial] Respiratory 16 16 Rate Blood Pressure 153/90 H 152/101 H [Left Brachial artery] O2 Saturation 97 96 Oxygen O2 Source Room air I&O (Last 24 Hrs): Intake and Output Totals x24h 04/13/23 04/14/23 04/15/23 23:59 23:59 23:59 Intake Total 2220 1480 640 Output Total 200 Balance 2220 1480 440 General: Alert, Oriented x3 HEENT: PERRLA, EOMI Neck: Supple Neuro: Alert, Focal Deficits, CN 2-12 Grossly Intact, Other (Right leg paralysis) Cardiovascular: Regular rate Abdomen: Normal bowel sounds Skin: No rashes - Results Results: Laboratory Results WBC 8.8 x10^3/uL (4.8-10.8) 04/15/23 04:55 RBC 4.41 10^6/uL (4.20-5.40) 04/15/23 04:55 Hgb 13.9 g/dL (12.0-16.0) 04/15/23 04:55 Hct 42.2 % (37.0-47.0) 04/15/23 04:55 MCV 95.7 fL (81.0-99.0) 04/15/23 04:55 MCH 31.5 pg (27.0-31.0) H 04/15/23 04:55 MCHC 32.9 g/dL (32.0-36.0) 04/15/23 04:55 RDW 13.4 % (12.0-15.0) 04/15/23 04:55 Plt Count 184 10^3/uL (130-450) 04/15/23 04:55 MPV 11.0 fL (7.9-10.8) H 04/15/23 04:55 Neut # (Auto) 5.9 10^3/uL (1.5-6.6) 04/15/23 04:55 Lymph # (Auto) 2.0 10^3/uL (1.5-3.5) 04/15/23 04:55 [place] # (Auto) 0.7 10^3/uL (0.0-1.0) 04/15/23 04:55 Eos # (Auto) 0.2 10^3/uL (0.0-0.7) 04/15/23 04:55 Baso # (Auto) 0.0 10^3/uL (0.0-0.1) 04/15/23 04:55 Absolute Nucleated RBC 0.00 x10^3/uL 04/15/23 04:55 Nucleated RBC % 0.0 /100WBC 04/15/23 04:55 Sodium 141 mmol/L (135-145) 04/13/23 05:53 Potassium 3.6 mmol/L (3.5-4.5) 04/13/23 05:53 Chloride 107 mmol/L (101-111) 04/13/23 05:53 Carbon Dioxide 29 mmol/L (21-32) 04/13/23 05:53 Anion Gap 5.0 (6-13) L 04/13/23 05:53 BUN 10 mg/dL (6-20) 04/13/23 05:53 Creatinine 0.5 mg/dL (0.6-1.3) L 04/13/23 05:53 Estimated GFR (MDRD) 124 (>89) 04/13/23 05:53 Glucose 92 mg/dL (74-104) 04/13/23 05:53 Estimat Average Glucose 114 mg/dL (70-100) H 04/13/23 05:53 Hemoglobin A1c % 5.6 % (4.27-6.07) 04/13/23 05:53 Calcium 9.2 mg/dL (8.5-10.3) 04/13/23 05:53 Total Bilirubin 0.6 mg/dL (0.2-1.0) 04/13/23 05:53 AST 13 IU/L (10-42) 04/13/23 05:53 ALT 12 IU/L (10-60) 04/13/23 05:53 Alkaline Phosphatase 68 IU/L (42-121) 04/13/23 05:53 Total Protein 5.5 g/dL (6.4-8.9) L 04/13/23 05:53 Albumin 3.4 g/dL (3.2-5.5) 04/13/23 05:53 Globulin 2.1 g/dL (2.1-4.2) 04/13/23 05:53 Albumin/Globulin Ratio 1.6 (1.0-2.2) 04/13/23 05:53 Triglycerides 117 mg/dL (48-352) 04/13/23 05:53 Cholesterol 214 mg/dL (-200) H 04/13/23 05:53 LDL Cholesterol, Calc 103 mg/dL (-129) 04/13/23 05:53 VLDL Cholesterol 23 mg/dL 04/13/23 05:53 HDL Cholesterol 88 mg/dL (60-) 04/13/23 05:53 LDL/HDL Ratio 1.2 (<4.4) 04/13/23 05:53 Cholesterol/HDL Ratio 2.4 (<4.4) 04/13/23 05:53 Lipase 18 U/L (11-82) 04/12/23 09:34 - Procedures Procedures: Procedures COLONOSCOPY (09/19/13) Sepsis Event Note (H) - Evaluation Current Stage of Sepsis: Ruled out ABX Reporting Has patient been on IV antibiotics over the past 48 hours?: No
[2023-04-15] MEDS: SODIUM CHLORIDE 0.9% 1,000 ML IV SCH (12:33)
[2023-04-15] MEDS ORDERED: iohexoL-300 100 ML VIAL ONE (15:23)
--- NOTE | 2023-04-15 17:08 | CT Report ---
PROCEDURE: Angio Head/Neck INDICATIONS: CVA TECHNIQUE: After the administration of intravenous contrast, 1 mm thick sections acquired from the aortic arch t hrough the [place]. 3-dimensional lqfasvu-bkiaranfe-tkyaxqcmjp (MIP) and/or volume renderin g reformats were acquired of the central intracranial vasculature and neck separately. For radiation dose reduction, the following was used: automated exposure control, adjustment of mA and/or kV acco rding to patient size. CONTRAST: 80ml omni 300 COMPARISON: Correlation is made with brain MRI, 04/14/2023. FINDINGS: Image quality: Limited by bolus timing, with venous contamination. HEAD CT: CSF Spaces: Basal cisterns are patent. No extra-axial fluid collections. Ventricles are normal in size and shape. Brain: The known left deep white matter infarction is not well seen on this study. Skull and face: Calvarium and visualized facial bones appear intact, without suspicious lesions. Sinuses: Visualized sinuses and mastoids are clear. HEAD CT ANGIOGRAPHY: Anterior circulation: Intracranial internal carotid arteries are normal in size and flow. The flow within the paired anterior cerebral arteries is normal and symmetric. The flow within the middle cer ebral arteries is normal and symmetric. The anterior communicating artery is seen. No aneurysms are seen. Posterior circulation: Visualized portions of the vertebral arteries demonstrate normal caliber, and join to form a normal appearing basilar artery. Flow within the posterior cerebral arteries is norm al and symmetric. No aneurysms are seen. NECK CT ANGIOGRAPHY: Carotid system: Incidental note is made of a common trunk off of the aorta of the right brachiocepha lic artery and the left common carotid artery (bovine type aortic arch). This is considered to be a d evelopmental variant of typically no clinical consequence. The origins of the common carotid arteri es appear patent. The common carotid arteries demonstrate normal caliber and courses. The bifurcati on regions are both widely patent. The internal carotid arteries demonstrate normal calibers and cou rses. Posterior circulation: The origins of the vertebral arteries both appear widely patent. The more wall perior extracranial portions of both vertebral arteries also demonstrate normal courses and calibers. The left vertebral artery is dominant to the right. Soft tissues: Visualized neck soft tissues demonstrate no suspicious abnormalities. There is made o f reflux of contrast into the left jugular vein. Bones: No suspicious bony lesions. Visualized cervical spine appears normally aligned. Cervical sp ine fixation hardware is seen anteriorly. There is a cervical spine similar posteriorly. At least mod erate cervical spine degenerative change is seen. IMPRESSION: No significant intracranial arterial abnormality is seen. No significant abnormality is seen within the arteries of the neck. Additional findings: At least moderate cervical spine degenerative change Cervical spine stimulator Anterior cervical spine fixation hardware Bovine type aortic branching pattern The estimate of stenosis included in the report of the imaging study was calculated using the NASCET method Reviewed by: Robbin Metzger MD on 04/15/2023 4:06 PM [facility] Approved by: Robbin Metzger MD on 04/15/2023 4:06 PM [facility] Station ID: [id number]
[2023-04-15] MEDS: iohexoL-300 100 ML VIAL IVP ONE (18:27)
[2023-04-16 05:42] LABS: BASOPHILS # (AUTO) 0.1 10^3/uL (0.0-0.1); BASOPHILS % (AUTO) 0.5 %; EOSINOPHILS # (AUTO) 0.1 10^3/uL (0.0-0.7); EOSINOPHILS % (AUTO) 1.4 %; HCT - HEMATOCRIT 41.3 % (37.0-47.0); HGB - HEMOGLOBIN 13.2 g/dL (12.0-16.0); LYMPHOCYTES # (AUTO) 1.8 10^3/uL (1.5-3.5); LYMPHOCYTES % (AUTO) 17.5 %; MEAN CORPUSCULAR HEMOGLOBIN 31.1 pg (27.0-31.0); MEAN CORPUSCULAR VOLUME 97.4 fL (81.0-99.0); MEAN PLATELET VOLUME 11.2 fL (7.9-10.8); MONOCYTES # (AUTO) 0.7 10^3/uL (0.0-1.0); MONOCYTES % (AUTO) 7.3 %; NEUTROPHILS # (AUTO) 7.4 10^3/uL (1.5-6.6); NEUTROPHILS % (AUTO) 73.1 %; PLT - PLATELET COUNT 174 10^3/uL (130-450); RED BLOOD COUNT 4.24 10^6/uL (4.20-5.40); RED CELL DISTRIBUTION WIDTH 13.4 % (12.0-15.0); WHITE BLOOD COUNT 10.1 x10^3/uL (4.8-10.8)
[2023-04-16 06:11] LABS: CALCIUM 8.6 mg/dL (8.5-10.3); CREATININE 0.3 mg/dL (0.6-1.3); POTASSIUM 3.4 mmol/L (3.5-4.5)
--- NOTE | 2023-04-16 09:41 | PROVIDER PROGRESS NOTE ---
Assessment/Plan - Problem List (1) Cerebrovascular accident (CVA) Qualifiers: CVA mechanism: unspecified Qualified Code(s): I63.9 - Cerebral infarction, unspecified Assessment/Plan: Not improved Patient still has paralysis of right leg Numbness seems slightly improved No treatment for blood pressure, goal SBP 1 40-1 80 Continue PT OT (2) HTN (hypertension) Assessment/Plan: Currently BP goal is 1 40-1 80 - Current Meds Current Meds: Current Medications Generic Name Dose Route Start Last Admin Trade Name Freq PRN Reason Stop Dose Admin Acetaminophen 650 mg 04/12/23 15:44 04/14/23 08:16 Acetaminophen 325 Mg Tablet PO 650 mg Q4HR PRN Administration Pain 1 to 4, or Fever Aspirin 81 mg 04/13/23 09:00 04/15/23 08:11 Aspirin Ec 81 Mg Tablet PO 81 mg DAILY LASHA Administration Atorvastatin Calcium 40 mg 04/12/23 21:00 04/15/23 21:05 Atorvastatin 40 Mg Tablet PO 40 mg QPM LASHA Administration Clopidogrel Bisulfate 75 mg 04/13/23 09:00 04/15/23 08:11 Clopidogrel 75 Mg Tablet PO 75 mg DAILY LASHA Administration Enoxaparin Sodium 40 mg 04/13/23 09:00 04/15/23 08:11 Enoxaparin 40 Mg/0.4 Ml Syringe SUBQ 40 mg DAILY LASHA Administration Gabapentin 300 mg 04/14/23 09:00 04/16/23 06:43 Gabapentin 300 Mg Capsule PO 300 mg TID LASHA Administration Hydrochlorothiazide 12.5 mg 04/15/23 09:00 04/15/23 08:11 Hydrochlorothiazide 12.5 Mg Capsule PO 12.5 mg DAILY LASHA Administration Sodium Chloride 1,000 mls @ 83.333 mls/hr 04/15/23 13:00 04/16/23 00:25 Normal Saline 0.9% IV 83.333 mls/hr .Q12H LASHA Administration Sodium Chloride 10 ml 04/12/23 17:00 04/16/23 00:25 Sodium Chloride Flush 0.9% 10 Ml Syringe IVP 10 ml 0100,0900,1700 LASHA Administration - Lab Result Fish Bone Diagrams: 04/16/23 05:11 04/16/23 05:11 - Additional Planning My Orders: My Active Orders 04/15/23 09:00 hydroCHLOROthiazide [Hydrodiuril] 12.5 mg PO DAILY 04/15/23 13:00 Sodium Chloride 0.9% [Normal Saline 0.9%] 1,000 ml IV 83.333 mls/hr 04/16/23 09:00 Docusate Sodium 250Mg Capsule [Colace 250Mg Capsule] 250 - 500 mg PO DAILY Senna [Senokot] 8.6 - 17.2 mg PO DAILY polyethylene glycoL 3350 [Miralax] 17 gm PO DAILY 04/17/23 05:00 BMP - BASIC METABOLIC PANEL [CHEM] DAILYLAB CBC [CBC - COMP BLD CT W/AUTO DIFF] [HEME] DAILYLAB 04/18/23 05:00 BMP - BASIC METABOLIC PANEL [CHEM] DAILYLAB 04/19/23 05:00 BMP - BASIC METABOLIC PANEL [CHEM] DAILYLAB 04/20/23 05:00 BMP - BASIC METABOLIC PANEL [CHEM] DAILYLAB Time Spent: 15-30 minutes Additional Planning Notes: Not medically cleared for discharge. Still in acute CVA phase Subjective - Subjective Patient Reports: Other (Numbness seems getting better, however weakness is not improved) Objective Vital Signs: Vital Signs - 24 hr 04/15/23 04/15/23 04/15/23 12:51 15:40 23:32 Temperature 37 C 36.8 C 36.6 C Heart Rate [ 83 78 71 Brachial] Respiratory 18 16 18 Rate Blood Pressure 135/82 H 144/86 H 133/88 H [Left Brachial artery] O2 Saturation 96 97 96 04/16/23 07:34 Temperature 36.5 C Heart Rate [ 76 Brachial] Respiratory 18 Rate Blood Pressure 161/98 H [Left Brachial artery] O2 Saturation 95 Oxygen O2 Source Room air I&O (Last 24 Hrs): Intake and Output Totals x24h 04/14/23 04/15/23 04/17/23 23:59 23:59 00:59 Intake Total 1480 1380 1328.885 Output Total 200 600 Balance 1480 1180 728.885 General: Alert, Oriented x3 HEENT: PERRLA, EOMI Neuro: Alert, Other (Right leg Paralyzed) Cardiovascular: Regular rate Respiratory: No respiratory distress Abdomen: Soft Extremities: No edema - Results Results: Laboratory Results WBC 10.1 x10^3/uL (4.8-10.8) 04/16/23 05:11 RBC 4.24 10^6/uL (4.20-5.40) 04/16/23 05:11 Hgb 13.2 g/dL (12.0-16.0) 04/16/23 05:11 Hct 41.3 % (37.0-47.0) 04/16/23 05:11 MCV 97.4 fL (81.0-99.0) 04/16/23 05:11 MCH 31.1 pg (27.0-31.0) H 04/16/23 05:11 MCHC 32.0 g/dL (32.0-36.0) 04/16/23 05:11 RDW 13.4 % (12.0-15.0) 04/16/23 05:11 Plt Count 174 10^3/uL (130-450) 04/16/23 05:11 MPV 11.2 fL (7.9-10.8) H 04/16/23 05:11 Neut # (Auto) 7.4 10^3/uL (1.5-6.6) H 04/16/23 05:11 Lymph # (Auto) 1.8 10^3/uL (1.5-3.5) 04/16/23 05:11 [place] # (Auto) 0.7 10^3/uL (0.0-1.0) 04/16/23 05:11 Eos # (Auto) 0.1 10^3/uL (0.0-0.7) 04/16/23 05:11 Baso # (Auto) 0.1 10^3/uL (0.0-0.1) 04/16/23 05:11 Absolute Nucleated RBC 0.00 x10^3/uL 04/16/23 05:11 Nucleated RBC % 0.0 /100WBC 04/16/23 05:11 Sodium 142 mmol/L (135-145) 04/16/23 05:11 Potassium 3.4 mmol/L (3.5-4.5) L 04/16/23 05:11 Chloride 112 mmol/L (101-111) H 04/16/23 05:11 Carbon Dioxide 25 mmol/L (21-32) 04/16/23 05:11 Anion Gap 5.0 (6-13) L 04/16/23 05:11 BUN 12 mg/dL (6-20) 04/16/23 05:11 Creatinine 0.3 mg/dL (0.6-1.3) L 04/16/23 05:11 Estimated GFR (MDRD) 223 (>89) 04/16/23 05:11 Glucose 84 mg/dL (74-104) 04/16/23 05:11 Estimat Average Glucose 114 mg/dL (70-100) H 04/13/23 05:53 Hemoglobin A1c % 5.6 % (4.27-6.07) 04/13/23 05:53 Calcium 8.6 mg/dL (8.5-10.3) 04/16/23 05:11 Total Bilirubin 0.6 mg/dL (0.2-1.0) 04/13/23 05:53 AST 13 IU/L (10-42) 04/13/23 05:53 ALT 12 IU/L (10-60) 04/13/23 05:53 Alkaline Phosphatase 68 IU/L (42-121) 04/13/23 05:53 Total Protein 5.5 g/dL (6.4-8.9) L 04/13/23 05:53 Albumin 3.4 g/dL (3.2-5.5) 04/13/23 05:53 Globulin 2.1 g/dL (2.1-4.2) 04/13/23 05:53 Albumin/Globulin Ratio 1.6 (1.0-2.2) 04/13/23 05:53 Triglycerides 117 mg/dL (48-352) 04/13/23 05:53 Cholesterol 214 mg/dL (-200) H 04/13/23 05:53 LDL Cholesterol, Calc 103 mg/dL (-129) 04/13/23 05:53 VLDL Cholesterol 23 mg/dL 04/13/23 05:53 HDL Cholesterol 88 mg/dL (60-) 04/13/23 05:53 LDL/HDL Ratio 1.2 (<4.4) 04/13/23 05:53 Cholesterol/HDL Ratio 2.4 (<4.4) 04/13/23 05:53 Lipase 18 U/L (11-82) 04/12/23 09:34 - Procedures Procedures: Procedures COLONOSCOPY (09/19/13) Sepsis Event Note (H) - Evaluation Current Stage of Sepsis: Ruled out ABX Reporting Has patient been on IV antibiotics over the past 48 hours?: No
[2023-04-16] MEDS: DOCUSATE SODIUM 250 MG CAPSULE PO SCH (10:12)
[2023-04-16] MEDS: SENNA 8.6 MG TABLET PO SCH (10:13)
[2023-04-16] MEDS: polyethylene glycoL 3350 17 GM PACKET PO SCH (10:13)
[2023-04-16] MEDS: POTASSIUM CHLORIDE 20 MEQ TABLET PO ONE (10:43)
[2023-04-17 06:42] LABS: BASOPHILS % (AUTO) 0.5 %; EOSINOPHILS # (AUTO) 0.1 10^3/uL (0.0-0.7); EOSINOPHILS % (AUTO) 1.7 %; HGB - HEMOGLOBIN 13.3 g/dL (12.0-16.0); LYMPHOCYTES # (AUTO) 1.6 10^3/uL (1.5-3.5); MEAN CORPUSCULAR HEMOGLOBIN 30.9 pg (27.0-31.0); MEAN CORPUSCULAR HGB CONC 32.4 g/dL (32.0-36.0); MEAN CORPUSCULAR VOLUME 95.3 fL (81.0-99.0); MEAN PLATELET VOLUME 11.6 fL (7.9-10.8); MONOCYTES # (AUTO) 0.7 10^3/uL (0.0-1.0); MONOCYTES % (AUTO) 8.3 %; NEUTROPHILS # (AUTO) 5.8 10^3/uL (1.5-6.6); NEUTROPHILS % (AUTO) 70.3 %; PLT - PLATELET COUNT 177 10^3/uL (130-450); RED CELL DISTRIBUTION WIDTH 13.3 % (12.0-15.0); WHITE BLOOD COUNT 8.2 x10^3/uL (4.8-10.8)
[2023-04-17 06:54] LABS: CREATININE 0.3 mg/dL (0.6-1.3); POTASSIUM 3.4 mmol/L (3.5-4.5)
[2023-04-17] MEDS: POTASSIUM CHLORIDE 20 MEQ TABLET PO SCH (08:42)
--- NOTE | 2023-04-17 14:39 | PROVIDER PROGRESS NOTE ---
Assessment/Plan - Problem List (1) Cerebrovascular accident (CVA) Qualifiers: CVA mechanism: occlusion Precerebral and cerebral artery: small artery Qualified Code(s): I63.81 - Other cerebral infarction due to occlusion or stenosis of small artery Assessment/Plan: ight leg paralysis, no improvement Intensive PT OT is recommended SNF versus IPR placement Patient is medically stable for discharge, safe discharge plan by social welfare administrator (2) HTN (hypertension) Assessment/Plan: Longer time of permissive hypertension may be beneficial Not on antihypertensive medication at this point Treat blood pressure if SBP over 200 - Current Meds Current Meds: Current Medications Generic Name Dose Route Start Last Admin Trade Name Freq PRN Reason Stop Dose Admin Acetaminophen 650 mg 04/12/23 15:44 04/17/23 06:25 Acetaminophen 325 Mg Tablet PO 650 mg Q4HR PRN Administration Pain 1 to 4, or Fever Aspirin 81 mg 04/13/23 09:00 04/17/23 08:42 Aspirin Ec 81 Mg Tablet PO 81 mg DAILY LASHA Administration Atorvastatin Calcium 40 mg 04/12/23 21:00 04/16/23 21:24 Atorvastatin 40 Mg Tablet PO 40 mg QPM LASHA Administration Clopidogrel Bisulfate 75 mg 04/13/23 09:00 04/17/23 08:42 Clopidogrel 75 Mg Tablet PO 75 mg DAILY LASHA Administration Docusate Sodium 250 - 500 mg 04/16/23 09:00 04/17/23 08:42 Docusate Sodium 250 Mg Capsule PO Not Given DAILY LASHA Enoxaparin Sodium 40 mg 04/13/23 09:00 04/17/23 08:43 Enoxaparin 40 Mg/0.4 Ml Syringe SUBQ 40 mg DAILY LASHA Administration Gabapentin 300 mg 04/14/23 09:00 04/17/23 14:20 Gabapentin 300 Mg Capsule PO 300 mg TID LASHA Administration Polyethylene Glycol 17 gm 04/16/23 09:00 04/17/23 08:43 Polyethylene Glycol 3350 17 Gm Packet PO Not Given DAILY LASHA Potassium Chloride 20 meq 04/17/23 09:00 04/17/23 08:42 Potassium Chloride 20 Meq Tablet PO 20 meq BID LASHA Administration Senna 8.6 - 17.2 mg 04/16/23 09:00 04/17/23 08:43 Senna 8.6 Mg Tablet PO Not Given DAILY LASHA Sodium Chloride 10 ml 04/12/23 17:00 04/17/23 08:43 Sodium Chloride Flush 0.9% 10 Ml Syringe IVP 10 ml 0100,0900,1700 LASHA Administration - Lab Result Lab results reviewed: Yes Fish Bone Diagrams: 04/17/23 05:26 04/17/23 05:26 - Diagnostic Imaging Results Diagnostic Imaging Results: Final report reviewed Diagnostic Imaging Results Comments: Echo showed no abnormal shunts of valvular condition contributed to stroke - Additional Planning Condition/Complexity: Stable My Orders: My Active Orders 04/17/23 09:00 Potassium Chloride [K-Dur] 20 meq PO BID 04/18/23 05:00 BMP - BASIC METABOLIC PANEL [CHEM] DAILYLAB 04/19/23 05:00 BMP - BASIC METABOLIC PANEL [CHEM] DAILYLAB 04/20/23 05:00 BMP - BASIC METABOLIC PANEL [CHEM] DAILYLAB Consult/Specialty: Neurology (Consulted with [facility] neurology) Plan Discussed with:: Patient, Family Time Spent: 31-60 minutes Additional Planning Notes: Patient is medically stable for discharge, await for safe discharge plan arranged by transplant case manager Subjective - Subjective Patient Reports: Other (Feels the same no change of weakness and numbness of right lower leg) Objective Vital Signs: Vital Signs - 24 hr 04/16/23 04/16/23 04/16/23 15:57 23:07 23:40 Temperature 37.0 C 36.7 C 36.6 C Heart Rate [ 76 86 73 Brachial] Respiratory 24 21 20 Rate Blood Pressure 142/87 H 108/78 153/96 H [Left Brachial artery] O2 Saturation 96 97 96 04/17/23 08:38 Temperature 36.6 C Heart Rate [ 79 Brachial] Respiratory 20 Rate Blood Pressure 141/86 H [Left Brachial artery] O2 Saturation 95 Oxygen O2 Source Room air I&O (Last 24 Hrs): Intake and Output Totals x24h 04/15/23 04/16/23 04/17/23 22:59 23:59 23:59 Intake Total 960 Output Total 1500 Balance -540 General: Alert, Oriented x3 HEENT: PERRLA, EOMI Neuro: Alert, Other (Right lower extremity paralysis with numbness, diminished dorsal reflex) Cardiovascular: Regular rate Respiratory: No respiratory distress Abdomen: Soft, No tenderness Extremities: No edema - Results Results: Laboratory Results WBC 8.2 x10^3/uL (4.8-10.8) 04/17/23 05:26 RBC 4.30 10^6/uL (4.20-5.40) 04/17/23 05:26 Hgb 13.3 g/dL (12.0-16.0) 04/17/23 05:26 Hct 41.0 % (37.0-47.0) 04/17/23 05:26 MCV 95.3 fL (81.0-99.0) 04/17/23 05:26 MCH 30.9 pg (27.0-31.0) 04/17/23 05:26 MCHC 32.4 g/dL (32.0-36.0) 04/17/23 05:26 RDW 13.3 % (12.0-15.0) 04/17/23 05:26 Plt Count 177 10^3/uL (130-450) 04/17/23 05:26 MPV 11.6 fL (7.9-10.8) H 04/17/23 05:26 Neut # (Auto) 5.8 10^3/uL (1.5-6.6) 04/17/23 05:26 Lymph # (Auto) 1.6 10^3/uL (1.5-3.5) 04/17/23 05:26 Teller # (Auto) 0.7 10^3/uL (0.0-1.0) 04/17/23 05:26 Eos # (Auto) 0.1 10^3/uL (0.0-0.7) 04/17/23 05:26 Baso # (Auto) 0.0 10^3/uL (0.0-0.1) 04/17/23 05:26 Absolute Nucleated RBC 0.00 x10^3/uL 04/17/23 05:26 Nucleated RBC % 0.0 /100WBC 04/17/23 05:26 Sodium 141 mmol/L (135-145) 04/17/23 05:26 Potassium 3.4 mmol/L (3.5-4.5) L 04/17/23 05:26 Chloride 110 mmol/L (101-111) 04/17/23 05:26 Carbon Dioxide 25 mmol/L (21-32) 04/17/23 05:26 Anion Gap 6.0 (6-13) 04/17/23 05:26 BUN 11 mg/dL (6-20) 04/17/23 05:26 Creatinine 0.3 mg/dL (0.6-1.3) L 04/17/23 05:26 Estimated GFR (MDRD) 223 (>89) 04/17/23 05:26 Glucose 80 mg/dL (74-104) 04/17/23 05:26 Estimat Average Glucose 114 mg/dL (70-100) H 04/13/23 05:53 Hemoglobin A1c % 5.6 % (4.27-6.07) 04/13/23 05:53 Calcium 9.0 mg/dL (8.5-10.3) 04/17/23 05:26 Total Bilirubin 0.6 mg/dL (0.2-1.0) 04/13/23 05:53 AST 13 IU/L (10-42) 04/13/23 05:53 ALT 12 IU/L (10-60) 04/13/23 05:53 Alkaline Phosphatase 68 IU/L (42-121) 04/13/23 05:53 Total Protein 5.5 g/dL (6.4-8.9) L 04/13/23 05:53 Albumin 3.4 g/dL (3.2-5.5) 04/13/23 05:53 Globulin 2.1 g/dL (2.1-4.2) 04/13/23 05:53 Albumin/Globulin Ratio 1.6 (1.0-2.2) 04/13/23 05:53 Triglycerides 117 mg/dL (48-352) 04/13/23 05:53 Cholesterol 214 mg/dL (-200) H 04/13/23 05:53 LDL Cholesterol, Calc 103 mg/dL (-129) 04/13/23 05:53 VLDL Cholesterol 23 mg/dL 04/13/23 05:53 HDL Cholesterol 88 mg/dL (60-) 04/13/23 05:53 LDL/HDL Ratio 1.2 (<4.4) 04/13/23 05:53 Cholesterol/HDL Ratio 2.4 (<4.4) 04/13/23 05:53 Lipase 18 U/L (11-82) 04/12/23 09:34 - Procedures Procedures: Procedures COLONOSCOPY (09/19/13) Sepsis Event Note (H) - Evaluation Current Stage of Sepsis: Ruled out ABX Reporting Has patient been on IV antibiotics over the past 48 hours?: No Current Medications - Current Medications Current Medications: Active Medications Acetaminophen (Acetaminophen 325 Mg Tablet) 650 mg PO Q4HR PRN PRN Reason: Pain 1 to 4, or Fever Last Admin: 04/17/23 06:25 Dose: 650 mg Aspirin (Aspirin Ec 81 Mg Tablet) 81 mg PO DAILY [facility] Last Admin: 04/17/23 08:42 Dose: 81 mg Atorvastatin Calcium (Atorvastatin 40 Mg Tablet) 40 mg PO QPM [facility] Last Admin: 04/17/23 21:37 Dose: 40 mg Clopidogrel Bisulfate (Clopidogrel 75 Mg Tablet) 75 mg PO DAILY [facility] Last Admin: 04/17/23 08:42 Dose: 75 mg Docusate Sodium (Docusate Sodium 250 Mg Capsule) 250 - 500 mg PO DAILY [facility] Last Admin: 04/17/23 08:42 Dose: Not Given Enoxaparin Sodium (Enoxaparin 40 Mg/0.4 Ml Syringe) 40 mg SUBQ DAILY [facility] Last Admin: 04/17/23 08:43 Dose: 40 mg Gabapentin (Gabapentin 300 Mg Capsule) 300 mg PO TID [facility] Last Admin: 04/17/23 21:37 Dose: 300 mg Ondansetron HCl (Ondansetron Odt 4 Mg Tablet) 4 mg TL Q6HR PRN PRN Reason: Nausea / Vomiting Polyethylene Glycol (Polyethylene Glycol 3350 17 Gm Packet) 17 gm PO DAILY [facility] Last Admin: 04/17/23 08:43 Dose: Not Given Potassium Chloride (Potassium Chloride 20 Meq Tablet) 20 meq PO BID [facility] Last Admin: 04/17/23 21:37 Dose: 20 meq Senna (Senna 8.6 Mg Tablet) 8.6 - 17.2 mg PO DAILY [facility] Last Admin: 04/17/23 08:43 Dose: Not Given Sodium Chloride (Sodium Chloride Flush 0.9% 10 Ml Syringe) 10 ml IVP PRN PRN PRN Reason: NEEDED PER PROVIDER ORDERS Sodium Chloride (Sodium Chloride Flush 0.9% 10 Ml Syringe) 10 ml IVP 0100,0900,1700 [facility] Last Admin: 04/17/23 17:05 Dose: 10 ml Gabapentin [Gabapentin ER] 600 mg PO DAILY 04/12/23 Losartan Potassium 100 mg PO DAILY 04/12/23
[2023-04-18 05:52] LABS: CALCIUM 9.3 mg/dL (8.5-10.3); CREATININE 0.3 mg/dL (0.6-1.3); POTASSIUM 3.7 mmol/L (3.5-4.5)
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
[2023-04-19 00:13] VITALS: O2SAT 95
[2023-04-19 07:00] LABS: CALCIUM 9.4 mg/dL (8.5-10.3); CREATININE 0.3 mg/dL (0.6-1.3); POTASSIUM 3.9 mmol/L (3.5-4.5)
--- NOTE | 2023-04-19 07:47 | PROVIDER PROGRESS NOTE ---
Progress Note April 18, 2023 1600 The patient was to be discharged April 16. However she the and family changed their mind about which longterm she was to go to. She had initially agreed to go to [facility] but with input from her daughter did not want to go there. Daughter really wanted her to go to the [facility]. As such, all of her discharge paperwork that was done today was canceled for today and will be reissued tomorrow. There is no change in the patient's status. She has a right facial droop. Right leg is not moving at all. But she denies any significant pain, cough, shortness of breath. Exam: Temperature is 36.9, heart rate 70, blood pressure 163/100, respirations 16, 97% on room air. 4 foot 10 inch female, 40 kg. She has a right arm amputation. Right leg is hemiplegic. Right facial droop. No problems with swallowing. Minimal to no dysarthria. No aphasia. No word finding problems. Neck is supple. Lungs are clear. Regular rate and rhythm. Abdomen is soft, nontender. Laboratory Tests 04/18/23 05:16 Sodium 140 Potassium 3.7 Chloride 110 Carbon Dioxide 25 Anion Gap 5.0 L BUN 11 Creatinine 0.3 L Estimated GFR (MDRD) 223 Glucose 88 Calcium 9.3 Assessment/Plan - Problem List (1) Cerebrovascular accident (CVA) Qualifiers: CVA mechanism: occlusion Precerebral and cerebral artery: small artery Qualified Code(s): I63.81 - Other cerebral infarction due to occlusion or stenosis of small artery Assessment/Plan: Patient initially presented with right leg weakness. She was still able to move her leg and did not have facial droop. As her admission progressed, she developed a right facial droop, and the dense hemiplegia of the right leg. She had severe hypertension. But labetalol and hydralazine were used to keep her systolic below 200. Patient had no symptoms of chest pain, shortness of breath with the hypertension. Treatment consisted of dual platelet therapy. PT. Management of her blood pressure. She is also on a statin. Discharge canceled for today. Patient and family had appealed discharge yesterday. By this afternoon, appeal has been denied by Medicare. But it is too late to get her discharged to a new skilled facility which is [facility]. As such she will be discharged tomorrow morning. Yesterday and today are avoidable days. (2) HTN (hypertension) Assessment/Plan: Her blood pressure medicine will be resumed at the longterm. At home she is on losartan 100 mg daily.
[2023-04-19] MEDS: LOSARTAN 50 MG TABLET PO ONE (08:08)
[2023-04-19 08:18] VITALS: BP 145/98
== END 2023-04-19 09:20 | DRG 65 ==
LOC: ED 08:48 → MS2 15:45
PROVIDERS: ADMIT Internal Medicine; ATTEND Specialist
DX: I63.81 Other cerebral infarction due to occlusion or stenosis of small artery (principal); G83.11 Monoplegia of lower limb affecting right dominant side; R07.81 Pleurodynia; I10 Essential (primary) hypertension; G81.91 Hemiplegia, unspecified affecting right dominant side; R29.810 Facial weakness; R47.1 Dysarthria and anarthria; E87.6 Hypokalemia; M79.604 Pain in right leg; I11.9 Hypertensive heart disease without heart failure; Z11.52 Encounter for screening for COVID-19; Z89.201 Acquired absence of right upper limb, unspecified level; Z91.81 History of falling
CPT/HCPCS: 36415; 70496; 70498; 70551; 70553; 71101; 80048; 80053; 80061; 83036; 83690; 85025; 87635; 93005; 93307; 97112; 97162; 97166; 97530; 99285; A9270; A9575; J1650; Q9967; 83721

== ENCOUNTER 2023-08-02 14:29 | Outpatient (CLI) | payer MEDICARE ==
--- NOTE | 2023-08-04 09:08 | Mammography Report ---
BILATERAL DIGITAL SCREENING MAMMOGRAM 3D/2D WITH AUGMENTATION: 08/02/2023 CLINICAL: Baseline exam. Routine screening. No prior exams were available for comparison. There are scattered areas of fibroglandular density in both breasts (category b / 25%-50% glandular t issue). Bilateral breast implants are intact. No significant masses, calcifications, or other findings are seen in either breast. IMPRESSION: NEGATIVE There is no mammographic evidence of malignancy. A 1 year screening mammogram is recommended. Based on the Tyrer Cuzick model (a risk assessment model) the patient's lifetime risk is 3.8% and her 10 year risk is 1.9%. According to the ACR, ACS, and NCCN guidelines, an annual breast MRI exam jennifer g with mammogram is recommended if the patient's lifetime risk is 20% or greater. This exam was interpreted at Station ID: [id number]. NOTE: For mammograms, a report in lay terms will be sent to the patient. Approximately 15% of breast malignancies will not be visualized mammographically. In the management of a palpable breast mass, a negative mammogram must not discourage biopsy of a clinically suspicious lesion. Electronically Signed By: Adriel mahoney/[email or web address]:08/03/2023 12:12:04 letter sent: No_Letter ACR BI-RADS Category 1: Negative [id number] PARENCHYMAL PATTERN: (A) - The breast(s) demonstrate(s) scattered fibroglandular densities. BI-RADS CATEGORY: (1) - 1 RECOMMENDATION: (ANNUAL) - Recommend routine annual screening mammography. [id number] 1 year screening LATERALITY: (B)
== END 2023-08-02 14:30 | disposition home or self-care (01) ==
LOC: DI 14:29
PROVIDERS: ATTEND Nurse Practitioner Acute Care
DX: Z12.31 Encounter for screening mammogram for malignant neoplasm of breast (principal); R92.323 Mammographic fibroglandular density, bilateral breasts

== ENCOUNTER 2023-08-02 14:31 | Outpatient (CLI) | payer MEDICARE ==
--- NOTE | 2023-08-02 16:45 | DEXA Report ---
PROCEDURE: Dexa Spine and/or Hip INDICATIONS: POST MENOPAUSAL TECHNIQUE: Dual energy x-ray absorptiometry (DXA) was performed on a [employer] System. Regions measur ed are the AP Spine, femoral neck, and if needed forearm. COMPARISON: None available. FINDINGS: Lumbar Spine: Bone Mineral Density: 0.593 g/cm/cm,T score: -4.9. Osteoporosis Left Femoral Neck: Bone Mineral Density: 0.530 g/cm/cm, T score: -3.7. Osteoporosis. Left Hip: Bone Mineral Density: 0.497 g/cm/cm,T score: -4.1. Osteoporosis Left Forearm: Bone Mineral Density: 0.579 g/cm/cm, T score: -3.4. Osteoporosis (T score greater or equal to -1.0: NORMAL) (T score from -1.1 to -2.4: OSTEOPENIA) (T score less than or equal to -2.5 to: OSTEOPOROSIS) Impression: By WHO criteria, this patient has osteoporosis. Patients with diagnosis of osteoporosis or osteopenia should have regular bone mineral density assess ment. For those eligible for Medicare, routine testing is allowed once every 2 years. Testing frequ ency can be increased for patients who have rapidly progressing disease or for those who are receivin g medical therapy to restore bone mass. Reviewed by: Zulema Castañeda MD on 08/02/2023 4:44 PM PDT Approved by: Zulema Castañeda MD on 08/02/2023 4:44 PM PDT Station ID: [id number]
== END 2023-08-02 14:32 | disposition home or self-care (01) ==
LOC: DI 14:31
PROVIDERS: ATTEND Nurse Practitioner Acute Care
DX: M81.0 Age-related osteoporosis without current pathological fracture (principal); Z78.0 Asymptomatic menopausal state

== ENCOUNTER 2023-08-21 09:00 | Outpatient (CLI) | payer MEDICARE ==
--- NOTE | 2023-08-21 10:25 | MRI Report ---
PROCEDURE: Lumbar Spine WO INDICATIONS: LUMBAR FX TECHNIQUE: Noncontrast sagittal T1 spin echo and T2 fast echo, sagittal STIR, axial T1 and T2 fast spin echo thr ough the lumbar spine. In cases with scoliosis, additional coronal T2 fast spin echo may be performe d. COMPARISON: Lumbar spine plain films dated 08/12/2023. FINDINGS: Image quality: Excellent. Alignment and Curvature: Mild levocurvature centered at L2-L3. Trace anterolisthesis of L1 on L2. Bone Marrow: There are subacute compression fractures of the inferior endplate of L1, the inferior en dplate of L2, and the superior endplate of L3. There is a chronic compression of T12. L1 compression has approximately 30% midportion vertebral body height loss. L2 compression has approximately 20% mid portion vertebral body height loss. L3 compression has approximately 50% midportion vertebral body he ight loss. No significant bony retropulsion. Spinal Cord: Conus medullaris terminates at the T12-L1 level. Visualized cord demonstrates normal s ignal and size. Paraspinous Soft Tissues: No paravertebral masses. T12-L1: Minimal disc bulge. Mild facet hypertrophy. No significant canal stenosis or foraminal steno sis. L1-L2: Disc bulge. Facet and ligament hypertrophy. Mild canal stenosis. Moderate right foraminal s tenosis and mild to moderate left foraminal stenosis. L2-L3: Disc bulge. Facet hypertrophy. Mild to moderate canal stenosis. Mild to moderate bilateral foraminal stenosis. L3-L4: Disc bulge. Facet hypertrophy. Mild to moderate canal stenosis. Moderate bilateral foraminal stenosis. L4-L5: Disc bulge. Facet hypertrophy. Mild canal stenosis. No significant foraminal stenosis. L5-S1: Facet hypertrophy. No canal stenosis or significant foraminal stenosis. IMPRESSION: 1. Subacute compressions of L1, L2, and L3. Chronic compression of T12. 2. Underlying scoliotic curvature and multilevel facet arthropathy. 3. Canal stenosis is mild at L1-L2, mild to moderate at L2-L3 and L3-L4, and mild at L4-L5. Reviewed by: Roderick Ramires MD on 08/21/2023 10:24 AM PDT Approved by: Roderick Ramires MD on 08/21/2023 10:24 AM PDT Station ID: [id number]
== END 2023-08-21 09:01 | disposition home or self-care (01) ==
LOC: DI 09:00
PROVIDERS: ATTEND Emergency Medicine
DX: S32.010A Wedge compression fracture of first lumbar vertebra, initial encounter for closed fracture (principal); S32.030A Wedge compression fracture of third lumbar vertebra, initial encounter for closed fracture; M48.54XD Collapsed vertebra, not elsewhere classified, thoracic region, subsequent encounter for fracture with routine healing; M47.816 Spondylosis without myelopathy or radiculopathy, lumbar region; M47.817 Spondylosis without myelopathy or radiculopathy, lumbosacral region; M48.061 Spinal stenosis, lumbar region without neurogenic claudication